=== PATIENT | female | born 1990 | race Caucasian/White ===

== ENCOUNTER 2018-02-02 05:49 | Day surgery (SDC) | payer OTHER ==
[2018-01-31 12:14] LABS: HEMATOCRIT 40.7 % (36.0-47.0); HEMOGLOBIN 13.7 g/dL (12.0-15.5); MEAN CORPUSCULAR HEMOGLOBIN 30.4 pg (27.0-33.4); MEAN CORPUSCULAR HGB CONC 33.7 g/dL (32.0-36.0); MEAN CORPUSCULAR VOLUME 90 fl (80-97); PLATELET COUNT 275 10^3/uL (150-450); RED CELL DISTRIBUTION WIDTH 13.3 % (11.5-14.0); WHITE BLOOD COUNT 5.1 10^3/uL (4.0-10.5)
[2018-01-31 12:32] LABS: APPEARANCE,URINE SLIGHTLY-CLOUDY; BILIRUBIN,URINE NEGATIVE (NEGATIVE); COLOR,URINE YELLOW; GLUCOSE, URINE NEGATIVE (NEGATIVE); KETONES,URINE TRACE mg/dL (NEGATIVE); LEUKOCYTE ESTERASE,URINE NEGATIVE (NEGATIVE); NITRITE,URINE NEGATIVE (NEGATIVE); PROTEIN,URINE NEGATIVE (NEGATIVE); URINE SPECIFIC GRAVITY 1.024
[2018-01-31 12:40] LABS: ANION GAP 12 (5-19); BLOOD UREA NITROGEN 15 mg/dL (7-20); CALCIUM 10.2 mg/dL (8.4-10.2); CARBON DIOXIDE 27 mmol/L (22-30); CHLORIDE 104 mmol/L (98-107); GLUCOSE 83 mg/dL (75-110); POTASSIUM 4.8 mmol/L (3.6-5.0); SODIUM 143.1 mmol/L (137-145)
[~2018-02-02 05:49] MED LIST: CEFAZOLIN 1 GM/D5W RTU 1 GM/50 ML RTUPB IV PRN; LACTATED RINGERS 1000 ML IV PRN; LIDOCAINE 0.5% INJ-PF (5 MG/ML) 50 ML SDV SUBCUT PRN
[2018-02-02] MEDS ORDERED: FENTANYL CITRATE INJ/PF 250 MCG/5 ML AMPULE ONE (06:55)
[2018-02-02] MEDS ORDERED: PROPOFOL INJ 200 MG/20 ML VIAL IV ONE (06:56)
[2018-02-02] MEDS ORDERED: EPHEDRINE SULFATE INJ 50 MG/1 ML AMPULE ONE (06:56)
[2018-02-02] MEDS ORDERED: MIDAZOLAM 2 MG/2 ML INJ ONE (06:56)
[2018-02-02] MEDS ORDERED: ACETAMINOPHEN 1,000 MG/100 ML RTUPB IV ONE (06:56)
[2018-02-02] MEDS ORDERED: DEXMEDETOMIDINE INJ 80 MCG/20 ML VIAL IV ONE (06:56)
[2018-02-02] MEDS ORDERED: LIDOCAINE 1% INJ-PF (10 MG/ML) 30 ML SDV ONE (07:14)
[2018-02-02] MEDS ORDERED: PROMETHAZINE HCL INJ 25 MG/1 ML VIAL IV PRN ×2 (08:12)
[2018-02-02] MEDS ORDERED: ONDANSETRON HCL INJ/PF 4 MG/2 ML SDV IV PRN (08:12)
[2018-02-02] MEDS ORDERED: DIPHENHYDRAMINE HCL 50 MG/ML VIAL IV PRN (08:12)
[2018-02-02] MEDS ORDERED: MORPHINE SULFATE 10 MG/ML INJ IV PRN (08:12)
[2018-02-02] MEDS ORDERED: FENTANYL CITRATE INJ/PF 100 MCG/2 ML AMPUL IV PRN ×3 (08:12)
[2018-02-02] MEDS ORDERED: MEPERIDINE HCL/PF INJ 25 MG/1 ML DISP.SYRIN IV PRN (08:12)
[2018-02-02] MEDS: FENTANYL CITRATE INJ/PF 100 MCG/2 ML AMPUL ONE ×2 (08:18→08:23)
--- NOTE | 2018-02-02 08:59 | OPERATIVE REPORT E ---
Operative Report NAME: ANTONIA MALAGON : 1990 AGE: 27Y DATE OF SURGERY: 02/02/2018 ROOM: PREOPERATIVE DIAGNOSIS: Desires permanent sterilization. POSTOPERATIVE DIAGNOSIS: Desires permanent sterilization. OPERATION: Laparoscopic Filshie clip sterilization. SURGEON: ZHOU RUIZ M.D. COMPLICATIONS: None. ANESTHESIA: General endotracheal and local around the incision postop. FINDINGS: Normal pelvis. Normal tubes and ovaries. Normal upper abdomen. ESTIMATED BLOOD LOSS: 5 mL. INDICATIONS FOR PROCEDURE: The patient desire permanent sterilization understanding the risk of bleeding, infection, anesthesia, damage to organs or tissues, understanding the risk of failure, and subsequent approximately 1:50 over 10 years. Other methods of control are made aware to the patient and she desired to be sterilized. PROCEDURE: The patient was taken to the operating room and placed in modified lithotomy position. After adequate anesthesia was ascertained, she was prepped and draped for an open laparoscopy. *------* fat and fascia, the peritoneum was entered without difficulty and an Origin cannula was placed. Gas was then instilled. The survey was completed. An 8 mm port was placed approximately 3 fingerbreadths above the symphysis pubis in the midline and a Filshie applicator was placed. One clip was placed immediately adjacent to the uterine fundus with adequate tube noted in *------* and the clip noted to extend over the entire width of the tube after the tubes were identified in their entirety. Normal ovaries were identified as well. The instruments were removed. Good hemostasis was noted. Gas was then removed and the umbilical site was closed with a 3-0 Vicryl stitch in the fascia and subcuticular stitch of 3-0 gut was used on skin bilaterally. 20 mL of 1% lidocaine was infiltrated around the incision sites postop. Band-Aids were placed. All sponge, needle and instrument counts correct. DICTATING PHYSICIAN: ZHOU RUIZ M.D. [id number] PHY#: [id number] ID: [id number] JOB#: [id number] ACCT: [id number] cc:ZHOU RUIZ M.D. >
[2018-02-02] MEDS ORDERED: OXYCODONE-ACETAMINOPHEN 5-325 MG TABLET PO PRN (09:00)
[2018-02-02] MEDS ORDERED: PROMETHAZINE HCL INJ 25 MG/1 ML VIAL IM PRN (09:00)
[2018-02-02 10:32] VITALS: BP 102/67
[2018-02-02] MEDS ORDERED: IBUPROFEN 800 MG TABLET PO SCH (14:00)
[2018-02-02] MEDS ORDERED: ONDANSETRON HCL INJ/PF 4 MG/2 ML SDV ONE (20:39)
[2018-02-02] MEDS ORDERED: SUCCINYLCHOLINE CHLORIDE INJ 200 MG/10 ML VIAL ONE (20:39)
[2018-02-02] MEDS ORDERED: NEOSTIGMINE METHYLSULFATE 10 MG/10 ML VIAL ONE (20:39)
[2018-02-02] MEDS ORDERED: GLYCOPYRROLATE INJ 0.4 MG/2 ML VIAL ONE (20:39)
[2018-02-02] MEDS ORDERED: DEXAMETHASONE SOD PHOSPHATE INJ 4 MG/1 ML VIAL ONE (20:39)
[2018-02-02] MEDS ORDERED: LIDOCAINE 2% INJ-PF (20 MG/ML) 2 ML AMPUL ONE (20:39)
[2018-02-02] MEDS ORDERED: KETOROLAC TROMETHAMINE 60 MG/2 ML SDV ONE (20:39)
[2018-02-02] MEDS ORDERED: METOCLOPRAMIDE HCL INJ/PF 10 MG/2 ML SDV ONE (20:39)
[2018-02-02] MEDS ORDERED: ROCURONIUM BROMIDE INJ 50 MG/5 ML VIAL IV ONE (20:39)
== END 2018-02-02 10:15 | disposition home or self-care (01) ==
LOC: OROUT 05:49
PROVIDERS: ATTEND Specialist
DX: Z30.2 Encounter for sterilization (principal); Z88.2 Allergy status to sulfonamides; J45.909 Unspecified asthma, uncomplicated
CPT/HCPCS: 86900; 86901; 36415; 86850; 85027; 81025; 80048; 81001; 58671; J2250; J0690; J3490 ×3; J1100; J1885; J3010 ×2; J2765; J0330; J2405; J2704; J0131; 851

== ENCOUNTER 2019-10-04 10:36 | Emergency (ER) | payer OTHER ==
--- NOTE | 2019-10-04 11:10 | ER Document Report ---
ED Medical Screen (RME) - General Chief Complaint: Chest Pain Stated Complaint: CHEST PAIN Time Seen by Provider: 10/04/19 11:09 Mode of Arrival: Ambulatory Information source: Patient Notes: 29-year-old female presented to ED for complaint of chest pain to the center of her chest now she is feeling shortness of breath and tightness to the chest. She states it did radiate to her stomach last night now is just in the center of her chest with shortness of breath and tightness. She has never had this discomfort before. She states she might have endometriosis but this is different. Her grandmother's brother of a [place] at 43 patient is alert oriented respirations regular nonlabored speaking in full sentences. She states 10 years ago she had some heart problems and they told her if she was older she would need a pacemaker. Pulse was 55 at urgent care and 61 in the emergency room. I have greeted and performed a rapid initial assessment of this patient. A comprehensive ED assessment and evaluation of the patient, analysis of test results and completion of medical decision making process will be conducted by an additional ED providers. TRAVEL OUTSIDE OF THE [place] IN LAST 30 DAYS: No - Related Data Allergies/Adverse Reactions: Sulfa (Sulfonamide Antibiotics) Allergy (Verified 10/04/19 11:08) Past Medical History - Past Medical History Cardiac Medical History: Denies: Hx Coronary Artery Disease, Hx Heart Attack, Hx Hypertension Pulmonary Medical History: Reports: Hx Asthma - MILD Denies: Hx Bronchitis, Hx COPD, Hx Pneumonia Neurological Medical History: Denies: Hx Cerebrovascular Accident, Hx Seizures Musculoskeltal Medical History: Denies Hx Arthritis Past Surgical History: Reports: Hx Orthopedic Surgery - WRIST - Immunizations Hx Diphtheria, Pertussis, Tetanus Vaccination: Yes Physical Exam - Vital signs Vitals: Temp Pulse Resp BP Pulse Ox 97.6 F 61 16 124/80 100 10/04/19 10:52 10/04/19 10:52 10/04/19 10:52 10/04/19 10:52 10/04/19 10:52 Course - Vital Signs Vital signs: Temp Pulse Resp BP Pulse Ox 97.6 F 61 16 124/80 100 10/04/19 10:52 10/04/19 10:52 10/04/19 10:52 10/04/19 10:52 10/04/19 10:52
[2019-10-04] MEDS ORDERED: ASPIRIN 81 MG TABLET, CHEWABLE PO ONE ×2 (11:13→15:30)
[2019-10-04 12:11] LABS: ABSOLUTE EOSINOPHILS # (AUTO) 0.1 10^3/uL (0.0-0.6); ABSOLUTE LYMPHOCYTES (AUTO) 1.9 10^3/uL (0.5-4.7); ABSOLUTE MONOCYTES (AUTO) 0.4 10^3/uL (0.1-1.4); ABSOLUTE NEUT (AUTO) 4.9 10^3/uL (1.7-8.2); BASOPHILS % (AUTO) 0.7 % (0-2); EOSINOPHILS % (AUTO) 1.1 % (0-6); HEMATOCRIT 43.4 % (36.0-47.0); LYMPHOCYTES % (AUTO) 25.6 % (13-45); MEAN CORPUSCULAR HEMOGLOBIN 31.4 pg (27.0-33.4); MEAN CORPUSCULAR HGB CONC 34.5 g/dL (32.0-36.0); MEAN CORPUSCULAR VOLUME 91 fl (80-97); MONOCYTES % (AUTO) 5.4 % (3-13); PLATELET COUNT 285 10^3/uL (150-450); RED BLOOD COUNT 4.77 10^6/uL (3.72-5.28); RED CELL DISTRIBUTION WIDTH 12.7 % (11.5-14.0); SEGMENTED NEUTROPHILS % (AUTO) 67.2 % (42-78); TOTAL CELLS COUNTED % (AUTO) 100 %; WHITE BLOOD COUNT 7.3 10^3/uL (4.0-10.5)
[2019-10-04 12:37] LABS: ALBUMIN 5.2 g/dL (3.5-5.0); ALKALINE PHOSPHATASE 54 U/L (38-126); ANION GAP 10 (5-19); ASPARTATE AMINO TRANSFERASE 30 U/L (14-36); BILIRUBIN,TOTAL 0.6 mg/dL (0.2-1.3); BLOOD UREA NITROGEN 14 mg/dL (7-20); CALCIUM 10.3 mg/dL (8.4-10.2); CARBON DIOXIDE 29 mmol/L (22-30); CHLORIDE 100 mmol/L (98-107); GLUCOSE 84 mg/dL (75-110); POTASSIUM 4.9 mmol/L (3.6-5.0)
--- NOTE | 2019-10-04 12:41 | RADIOLOGY REPORT (SQ) ---
EXAM DESCRIPTION: CHEST 2 VIEWS COMPLETED DATE/TIME: 10/04/2019 12:29 pm REASON FOR STUDY: Chest pain pressure COMPARISON: None. EXAM PARAMETERS: NUMBER OF VIEWS: Two views. TECHNIQUE: PA and lateral views of the chest were obtained.. RADIATION DOSE: NA LIMITATIONS: none FINDINGS: LUNGS AND PLEURA: No consolidation, pleural effusion or pneumothorax. MEDIASTINUM AND HILAR STRUCTURES: No mediastinal or hilar contour abnormality. HEART AND VASCULAR STRUCTURES: The cardiac silhouette and pulmonary vasculature are within normal sorensen its. BONES: No acute findings. HARDWARE: Breast implants. OTHER: No other finding. IMPRESSION: No acute cardiopulmonary process. TECHNICAL DOCUMENTATION: JOB ID: [id number] [employer]- All Rights Reserved Reading location - IP/workstation name: [email or web address]
--- NOTE | 2019-10-04 15:56 | ER Document Report ---
ED General - General Chief Complaint: Chest Pain Stated Complaint: CHEST PAIN Time Seen by Provider: 10/04/19 11:09 Mode of Arrival: Ambulatory Notes: Patient is a 29-year-old white female with a past medical history of low heart rates as a child who presents to the ER today with a chief complaint of the same. The patient states over the past few days when lying down at night her Fitbit watch has recorded her heart rate in the 40s. She states when he gets this low she feels palpitations in her chest. She states with one episode last night she had pain. She states she was unable to sleep because of this. She was concerned given this ongoing every night for the past couple of nights that she came for evaluation. She states during the day she is fine this only happens at night when she lies down. She denies any trauma to the chest. Admits that it is sometimes associated with a sensation of shortness of breath with the palpitations. She denies any coughing or hemoptysis. Denies any lower extremity pain or swelling, history of DVT or PE, recent surgery, recent immobilization, recent travel, hormone replacement therapy, history of cancer or smoking. She reports that she did have a Holter monitor test by her primary doctor when she was a young girl that showed the same lower heart rate intervals from time to time, states her doctor at that time told her if she was older he would put a pacemaker in but nothing was done since. She states that was well over 10 years ago and she has not seen anyone since. She states the doctor at that time was not a entertainment musician. The only medicine she takes daily is a hair skin and nail supplement. TRAVEL OUTSIDE OF THE [place] IN LAST 30 DAYS: No - Related Data Allergies/Adverse Reactions: Sulfa (Sulfonamide Antibiotics) Allergy (Verified 10/04/19 11:08) Past Medical History - General Information source: Patient - Social History Smoking Status: Former Smoker Frequency of alcohol use: Occasional Drug Abuse: None Family History: Reviewed & Not Pertinent Patient has suicidal ideation: No Patient has homicidal ideation: No - Past Medical History Cardiac Medical History: Denies: Hx Coronary Artery Disease, Hx Heart Attack, Hx Hypertension Pulmonary Medical History: Reports: Hx Asthma - MILD Denies: Hx Bronchitis, Hx COPD, Hx Pneumonia Neurological Medical History: Denies: Hx Cerebrovascular Accident, Hx Seizures Musculoskeletal Medical History: Denies Hx Arthritis Past Surgical History: Reports: Hx Breast Surgery, Hx Orthopedic Surgery - WRIST, Hx Tubal Ligation - Immunizations Hx Diphtheria, Pertussis, Tetanus Vaccination: Yes Review of Systems - Review of Systems Cardiovascular: Chest pain, Palpitations -: Yes All other systems reviewed and negative Physical Exam - Vital signs Vitals: Temp Pulse Resp BP Pulse Ox 97.6 F 61 16 124/80 100 10/04/19 10:52 10/04/19 10:52 10/04/19 10:52 10/04/19 10:52 10/04/19 10:52 - General General appearance: Appears well, Alert - Respiratory Respiratory status: No respiratory distress Chest status: Nontender Breath sounds: Normal Chest palpation: Normal - Cardiovascular Rhythm: Regular Heart sounds: Normal auscultation Murmur: No Pulses: Normal: Radial, Dorsalis pedis Normal capillary refill: Yes - Extremities General upper extremity: Normal inspection, Nontender, Normal color, Normal ROM, Normal temperature General lower extremity: Normal inspection, Nontender, Normal color, Normal ROM, Normal temperature, Normal weight bearing. No: Duke's sign - Neurological Neuro grossly intact: Yes Cognition: Normal Orientation: AAOx4 Hadley Coma Scale Eye Opening: Spontaneous Hadley Coma Scale Verbal: Oriented Hadley Coma Scale Motor: Obeys Commands Hadley Coma Scale Total: 15 Speech: Normal Sensory: Normal - Psychological Associated symptoms: Normal affect, Normal mood - Skin Skin Temperature: Warm Skin Moisture: Dry Skin Color: Normal Course - Re-evaluation Re-evalutation: 10/04/19 15:54 Patient's work-up is unremarkable. EKG showing no acute abnormalities. X-ray negative for acute process per radiologist. Trope negative. Patient has no risk factors for DVT or PE. Should be referred to cardiology for outpatient work-up regarding this. I counseled her to begin 81 mg aspirin per day and to utilize bearing-down or vagal type maneuvers during episodes of palpitations or suspected low heart rate with symptoms to attempt to re-begin the normal rate. Patient will follow-up as discussed. Counseled the family at length regarding the importance of outpatient follow-up and advised they return here or any ER immediately with any new, persistent or worsening symptoms. They verbalized understood and agreed. - Vital Signs Vital signs: Temp Pulse Resp BP Pulse Ox 97.6 F 61 16 124/80 97 10/04/19 10:52 10/04/19 10:52 10/04/19 15:20 10/04/19 10:52 10/04/19 15:20 - Laboratory Result Diagrams: 10/04/19 11:40 10/04/19 11:40 Laboratory results interpreted by me: 10/04/19 11:40 Calcium 10.3 H Albumin 5.2 H Discharge - Discharge Clinical Impression: Palpitations Chest pain Qualifiers: Chest pain type: unspecified Qualified Code(s): R07.9 - Chest pain, unspecified Condition: Stable Disposition: HOME, SELF-CARE Instructions: Chest Pain of Unclear Cause ([facility]) Additional Instructions: Please follow-up with a entertainment musician as soon as possible for continued outpatient care, work-up and monitoring/management. Return here or any ER immediately with any new, persistent or worsening symptoms.
[2019-10-04 16:25] VITALS: BP 102/63
--- NOTE | 2019-10-04 18:33 | EKG REPORT ---
SEVERITY:- NORMAL ECG - SINUS RHYTHM : Confirmed by: Dee Dee Garner MD 04-Oct-2019 18:33:00
== END 2019-10-04 16:25 | disposition home or self-care (01) ==
LOC: ER 10:36
DX: R07.9 Chest pain, unspecified (principal); R00.2 Palpitations; R06.02 Shortness of breath; Z88.2 Allergy status to sulfonamides; Z87.891 Personal history of nicotine dependence; J45.909 Unspecified asthma, uncomplicated
CPT/HCPCS: 36415; 71046; 80053; 84484; 85025; 93005; 93010; 99285